=== PATIENT | male | born 1940 | race Caucasian/White ===

== ENCOUNTER 2021-04-12 09:57 | Outpatient (CLI) | payer MEDICARE | END 2021-04-12 09:58 | disposition home or self-care (01) | LOC: CT 09:57 | PROVIDERS: ATTEND Specialist | DX: N30.81 Other cystitis with hematuria (principal); I71.4 Abdominal aortic aneurysm, without rupture; K57.90 Diverticulosis of intestine, part unspecified, without perforation or abscess without bleeding; I72.3 Aneurysm of iliac artery; N50.89 Other specified disorders of the male genital organs | CPT/HCPCS: 74176 ==

== ENCOUNTER 2021-08-03 14:22 | Outpatient (CLI) | payer MEDICARE | END 2021-08-03 14:23 | disposition home or self-care (01) | LOC: BICULT 14:22 | PROVIDERS: ATTEND Specialist | DX: R31.9 Hematuria, unspecified (principal); N32.89 Other specified disorders of bladder | CPT/HCPCS: 76770 ==

== ENCOUNTER 2021-08-20 13:07 | Outpatient (CLI) | payer MEDICARE ==
[~2021-08-20 13:07] MED LIST: ISOVUE-370 76%-LOCM 1 ML ONE
== END 2021-08-20 13:08 | disposition home or self-care (01) ==
LOC: BICCT 13:07
PROVIDERS: ATTEND Thoracic Surgery (Cardiothoracic Vascular Surgery)
DX: I71.4 Abdominal aortic aneurysm, without rupture (principal); K57.90 Diverticulosis of intestine, part unspecified, without perforation or abscess without bleeding
CPT/HCPCS: 74174; 82565; Q9966

== ENCOUNTER 2021-08-31 12:45 | Outpatient (CLI) | payer MEDICARE ==
[2021-08-31 14:16] LABS: Mean Corpuscular HGB CONC 32.3 g/dL (32.0-36.0); Mean Corpuscular Hemoglobin 29.9 pg (27.0-33.0); Mean Corpuscular Volume 92.7 fl (81.2-95.1); Mean Platelet Volume 10.8 fl (7.4-10.4); Platelet Count 255 10x3/uL (150-450); RBC Distribution Width 13.8 % (11.5-14.5); Red Blood Cell (RBC) Count 4.68 10x6/uL (4.32-5.72)
[2021-08-31 14:35] LABS: Anion Gap 16 mmol/L (10-20); BUN (Urea Nitrogen) 12 mg/dL (8.4-25.7); Calc. Creatinine Clearance 0 mL/min (70-130); Calcium 9.5 mg/dL (7.8-10.44); Carbon Dioxide 26 mmol/L (23-31); Chloride 103 mmol/L (98-107); Estimated GFR 48; Glucose 102 mg/dL (83-110); Potassium 4.3 mmol/L (3.5-5.1); Sodium 141 mmol/L (136-145)
[2021-08-31 14:37] LABS: INR-International Normal Ratio 0.9; PTT 27.3 sec (22.0-33.0); Prothrombin Time 10.2 sec (9.5-12.1)
== END 2021-08-31 12:46 | disposition home or self-care (01) ==
LOC: LABBT 12:45
PROVIDERS: ATTEND Thoracic Surgery (Cardiothoracic Vascular Surgery)
DX: Z01.812 Encounter for preprocedural laboratory examination (principal); N32.89 Other specified disorders of bladder; R31.0 Gross hematuria; E11.9 Type 2 diabetes mellitus without complications; Z20.822 Contact with and (suspected) exposure to COVID-19; N40.1 Benign prostatic hyperplasia with lower urinary tract symptoms; R35.0 Frequency of micturition; N28.1 Cyst of kidney, acquired; I71.4 Abdominal aortic aneurysm, without rupture; Z79.01 Long term (current) use of anticoagulants; I48.91 Unspecified atrial fibrillation; R33.9 Retention of urine, unspecified
CPT/HCPCS: 80048; 85027; 85610; 85730; 87811

== ENCOUNTER 2021-08-31 16:15 | Inpatient (IN) | payer MEDICARE ==
[2021-09-05] MEDS ORDERED: EPINEPHrine 1 MG/ML AMP ONE (06:15)
[2021-09-05] MEDS ORDERED: Dexamethasone 4 mg/ml Vial ONE (06:15)
[2021-09-05] MEDS ORDERED: Protamine Sulfate 50 MG/5 ML VIAL ONE ×2 (06:15→10:04)
[2021-09-05] MEDS ORDERED: Bupivacaine PF 0.5% 30 ML VIAL ONE (06:15)
[2021-09-05] MEDS ORDERED: Heparin 10,000 UNITS/ 10 ML VIAL ONE ×2 (06:15→09:09)
[2021-09-05] MEDS ORDERED: Lidocaine 1% MPF 2 ML VIAL ONE (06:44)
[2021-09-05] MEDS ORDERED: fentaNYL Citrate/PF 100 MCG/2 ML SYRINGE ONE (07:05)
[2021-09-05] MEDS ORDERED: CEFAZOLIN 2 GM VIAL ONE (07:22)
[2021-09-05] MEDS ORDERED: Sodium Chloride 0.9% 100 ML ONE (07:22)
[2021-09-05] MEDS ORDERED: Fentanyl 100 MCG/2 ML VIAL SLOW IVP PRN (10:35)
[2021-09-05] MEDS ORDERED: Ondansetron PF 4 MG/2 ML Vial IVP PRN (10:35)
[2021-09-05] MEDS ORDERED: Phenylephrine 40 MG in Sodium Chloride 0.9% 250 ML 250 ML IVPB PRN (10:35)
[2021-09-05] MEDS ORDERED: hydrALAZINE 20 MG/ML VIAL SLOW IVP PRN ×3 (10:35→16:07)
[2021-09-05] MEDS ORDERED: ceFAZolin 2 GM/Dextrose 50 ML 2 GM in Premix Bag 1 BAG IVPB SCH (10:35)
[2021-09-05] MEDS ORDERED: Acetaminophen 325 MG TAB PO PRN (10:35)
[2021-09-05] MEDS ORDERED: traMADol HCl 50 MG TAB PO PRN ×2 (10:35)
[2021-09-05 13:05] VITALS: BMI 42.1
[2021-09-05] MEDS: CEFAZOLIN 2 GM in Sodium Chloride 0.9% 100 ML IVPB SCH ×2 (13:45→22:19)
[2021-09-05] MEDS: Tamsulosin HCl 0.4 MG CAP PO SCH (20:24)
[2021-09-05] MEDS: Carvedilol 25 MG TAB PO SCH (20:25)
[2021-09-05] MEDS: glipiZIDE 5 MG TAB PO SCH (20:25)
[2021-09-05] MEDS ORDERED: Non-Formulary Item 1 EACH (Simvastatin [Simvastatin] 80 MG Tablet) PO SCH (21:00)
[2021-09-05] MEDS ORDERED: Finasteride 5 MG TAB PO SCH (21:00)
[2021-09-05] MEDS ORDERED: Atorvastatin Calcium 40 MG TAB PO SCH (21:00)
[2021-09-05] MEDS ORDERED: glipiZIDE 5 MG TAB PO SCH (21:00)
[2021-09-05] MEDS: Sodium Chloride 0.9% 1,000 ML IV SCH (22:20)
[2021-09-06 03:53] LABS: #Lymphocytes 1.2 thou/uL (1.20-3.40); #Monocytes 1.1 thou/uL (0.11-0.59); #Neutrophils 12.5 thou/uL (1.40-6.50); %Basophils 0.1 % (0.0-1.0); %Eosinophils 0.1 % (0.0-10.0); %Monocytes 7.5 % (0.0-10.0); %Neutrophils 84.3 % (42.0-75.0); Hemoglobin 13.7 g/dL (14.0-18.0); Mean Corpuscular HGB CONC 33.7 g/dL (32.0-36.0); Mean Corpuscular Volume 94.9 fL (78.0-98.0); Mean Platelet Volume 7.9 fL (7.4-10.4); Platelet Count 183 thou/uL (130-400); RBC Distribution Width 13.4 % (11.5-14.5); Red Blood Cell (RBC) Count 4.29 mill/uL (4.70-6.10); White Blood Cell (WBC) Count 14.8 thou/uL (4.8-10.8)
[2021-09-06 03:59] LABS: Anion Gap 14 mmol/L (10-20); BUN (Urea Nitrogen) 13 mg/dL (8.4-25.7); Calc. Creatinine Clearance 103 mL/min (70-130); Calcium 8.8 mg/dL (7.8-10.44); Carbon Dioxide 22 mmol/L (23-31); Chloride 108 mmol/L (98-107); Estimated GFR 64; Glucose 127 mg/dL (83-110); Potassium 3.8 mmol/L (3.5-5.1); Sodium 140 mmol/L (136-145)
[2021-09-06 04:40] VITALS: TEMP 97.7
[2021-09-06] MEDS: CEFAZOLIN 2 GM in Sodium Chloride 0.9% 100 ML IVPB SCH (06:28)
[2021-09-06] MEDS: Sodium Chloride 0.9% 1,000 ML IV SCH (08:04)
[2021-09-06] MEDS: Carvedilol 25 MG TAB PO SCH (08:06)
[2021-09-06] MEDS: Tamsulosin HCl 0.4 MG CAP PO SCH (08:07)
[2021-09-06] MEDS: glipiZIDE 5 MG TAB PO SCH (08:07)
[2021-09-06 08:08] VITALS: BP 135/85
[2021-09-06] MEDS ORDERED: Non-Formulary Item 1 EACH (Multivitamin [Multi-Vitamin Daily] 1 TABLET Tablet) PO SCH (09:00)
[2021-09-06] MEDS ORDERED: BUPROPION HCL 200 MG PO SCH (09:00)
[2021-09-06] MEDS ORDERED: Amlodipine 5 MG TAB PO SCH (09:00)
[2021-09-06] MEDS ORDERED: Aspirin 81 mg Enteric Coated Tablet PO SCH (09:00)
[2021-09-06] MEDS ORDERED: Non-Formulary Item 1 EACH (Omeprazole [Omeprazole] 40 MG Capsule.Dr) PO SCH (09:00)
[2021-09-06] MEDS ORDERED: Alogliptin 25 MG TAB PO SCH (09:00)
[2021-09-06] MEDS ORDERED: Hydrochlorothiazide 25 MG TAB PO SCH (09:00)
[2021-09-06] MEDS ORDERED: Ferrous Sulfate 325 MG TAB PO SCH (09:00)
[2021-09-06] MEDS ORDERED: Digoxin 0.125 MG TAB PO SCH (09:00)
[2021-09-06] MEDS ORDERED: Multivit, Therapeutic 1 TAB PO SCH (09:00)
[2021-09-06] MEDS ORDERED: Bupropion 100 MG SR TAB PO SCH (09:00)
== END 2021-09-06 10:57 | disposition home or self-care (01) | DRG 269 ==
LOC: SURG A 09-05 05:49 → CCU 09-05 12:52
PROVIDERS: ADMIT Thoracic Surgery (Cardiothoracic Vascular Surgery); ATTEND Thoracic Surgery (Cardiothoracic Vascular Surgery)
PROC: 04V03DZ Restriction of Abdominal Aorta with Intraluminal Device, Percutaneous Approach (ICD-10-PCS; principal; 2021-09-05)
DX: I71.4 Abdominal aortic aneurysm, without rupture (principal); Z68.41 Body mass index [BMI] 40.0-44.9, adult; Z20.822 Contact with and (suspected) exposure to COVID-19; E78.2 Mixed hyperlipidemia; E66.01 Morbid (severe) obesity due to excess calories; N40.0 Benign prostatic hyperplasia without lower urinary tract symptoms; I48.0 Paroxysmal atrial fibrillation; D49.4 Neoplasm of unspecified behavior of bladder; E11.9 Type 2 diabetes mellitus without complications; Z79.82 Long term (current) use of aspirin; Z79.899 Other long term (current) drug therapy; Z79.02 Long term (current) use of antithrombotics/antiplatelets; Z79.84 Long term (current) use of oral hypoglycemic drugs; Z95.1 Presence of aortocoronary bypass graft
CPT/HCPCS: 36415; 36416; 76000; 80048; 85025; 86850; 86900; 86901; C1726; C1776; C1894; J0171; J0360; J0690; J1100; J1642; J1644; J2720; J3490; J7050; S0020

== ENCOUNTER 2021-09-19 05:59 | Day surgery (SDC) | payer MEDICARE ==
[2021-09-17 11:17] LABS: Hemoglobin 12.5 g/dL (13.5-17.5); Mean Corpuscular HGB CONC 32.5 g/dL (32.0-36.0); Mean Corpuscular Hemoglobin 29.6 pg (27.0-33.0); Platelet Count 356 10x3/uL (150-450); RBC Distribution Width 13.9 % (11.5-14.5); Red Blood Cell (RBC) Count 4.23 10x6/uL (4.32-5.72)
[2021-09-17 11:30] LABS: PTT 26.8 sec (22.0-33.0); Prothrombin Time 10.5 sec (9.5-12.1)
[2021-09-17 11:46] LABS: Anion Gap 15 mmol/L (10-20); BUN (Urea Nitrogen) 14 mg/dL (8.4-25.7); Calc. Creatinine Clearance 0 mL/min (70-130); Calcium 9.3 mg/dL (7.8-10.44); Carbon Dioxide 30 mmol/L (23-31); Chloride 98 mmol/L (98-107); Estimated GFR 46; Glucose 139 mg/dL (83-110); Potassium 4.6 mmol/L (3.5-5.1); Sodium 138 mmol/L (136-145)
[2021-09-17 12:43] LABS: Bilirubin Neg (Negative); Blood, Urine 25 (Negative); Clarity Clear (Clear); Glucose, Urine (Dipstick) >=1000 mg/dL (Negative); Ketone, Urine Negative (Negative); Leukocyte Negative (Negative); Nitrite Negative (Negative); Protein, Urine (Dipstick) 15 mg/dl (Neg-Trace); Urobilinogen Normal mg/dL (Less than 2)
[2021-09-17 13:28] LABS: Bacteria/HPF Rare-Few HPF (None Seen); Squamous Epithelial 0-3 HPF (0-3); WBC/HPF 0-3 HPF (0-3)
[2021-09-17 13:29] LABS: Mucous/LPF Rare LPF (<2+)
[2021-09-17 14:13] VITALS: BMI 39.9
[2021-09-19] MEDS ORDERED: mitoMYcin 40 MG in Sodium Chloride 0.9% 40 ML IV SCH (06:30)
[2021-09-19] MEDS ORDERED: Fentanyl 100 MCG/2 ML VIAL ONE (07:05)
[2021-09-19] MEDS ORDERED: SUGAMMADEX SODIUM 200 MG/2 ML VIAL ONE (07:18)
[2021-09-19] MEDS ORDERED: Levofloxacin 500 mg/D5W 100 ml Premix Bag ONE (07:36)
[2021-09-19] MEDS ORDERED: Oxybutynin 5 MG TAB ONE (08:50)
[2021-09-19] MEDS ORDERED: Phenazopyridine HCl 100 MG TAB ONE (08:50)
[2021-09-19] MEDS ORDERED: Ondansetron PF 4 MG/2 ML Vial ONE (09:17)
[2021-09-19] MEDS ORDERED: Rocuronium Bromide 10 MG/ML (10ML VIAL) ONE (09:17)
[2021-09-19] MEDS ORDERED: Lidocaine 1% PF 5 ML VIAL ONE (09:17)
== END 2021-09-19 12:42 | disposition home or self-care (01) ==
LOC: SDC 05:59
PROVIDERS: ATTEND Urology
PROC: 0TBB8ZX Excision of Bladder, Via Natural or Artificial Opening Endoscopic, Diagnostic (ICD-10-PCS; principal; 2021-09-19)
PROC: 3E0K705 Introduction of Other Antineoplastic into Genitourinary Tract, Via Natural or Artificial Opening (ICD-10-PCS; 2021-09-19)
DX: C67.2 Malignant neoplasm of lateral wall of bladder (principal); N40.1 Benign prostatic hyperplasia with lower urinary tract symptoms; R39.14 Feeling of incomplete bladder emptying; N32.89 Other specified disorders of bladder; N32.3 Diverticulum of bladder; R35.0 Frequency of micturition; I11.9 Hypertensive heart disease without heart failure; E11.9 Type 2 diabetes mellitus without complications; I25.10 Atherosclerotic heart disease of native coronary artery without angina pectoris; I48.91 Unspecified atrial fibrillation; E78.00 Pure hypercholesterolemia, unspecified; I71.4 Abdominal aortic aneurysm, without rupture; E66.01 Morbid (severe) obesity due to excess calories; Z68.39 Body mass index [BMI] 39.0-39.9, adult; Z79.82 Long term (current) use of aspirin; Z79.84 Long term (current) use of oral hypoglycemic drugs; Z79.899 Other long term (current) drug therapy; Z95.1 Presence of aortocoronary bypass graft; Z95.810 Presence of automatic (implantable) cardiac defibrillator; Z20.822 Contact with and (suspected) exposure to COVID-19
CPT/HCPCS: 52235; 80048; 81001; 85027; 85610; 85730; 86850; 86900; 86901; 87086; 87811; J9280; 88305; 88307; 88341; 88342; J1956; J2405; J3010

== ENCOUNTER 2021-10-12 12:32 | Outpatient (CLI) | payer MEDICARE | END 2021-10-12 12:33 | disposition home or self-care (01) | LOC: LABBT 12:32 | PROVIDERS: ATTEND Urology | DX: Z01.818 Encounter for other preprocedural examination (principal); C67.9 Malignant neoplasm of bladder, unspecified; Z20.822 Contact with and (suspected) exposure to COVID-19 | CPT/HCPCS: 80048; 81001; 85027; 85610; 85730; 86850; 86900; 86901; 87086; 87811; 93005; 93010 ==

== ENCOUNTER 2021-10-17 07:36 | Day surgery (SDC) | payer MEDICARE ==
[2021-10-12 13:36] LABS: Bilirubin Neg (Negative); Blood, Urine Negative (Negative); Clarity Clear (Clear); Glucose, Urine (Dipstick) >=1000 mg/dL (Negative); Ketone, Urine Negative (Negative); Leukocyte 25 (Negative); Nitrite Negative (Negative); Protein, Urine (Dipstick) Negative (Neg-Trace); Specific Gravity, Urine 1.005 (1.002-1.036); Urobilinogen Normal mg/dL (Less than 2)
[2021-10-12 13:41] LABS: Hemoglobin 13.1 g/dL (13.5-17.5); Mean Corpuscular HGB CONC 31.9 g/dL (32.0-36.0); Mean Corpuscular Volume 91.1 fl (81.2-95.1); Mean Platelet Volume 10.6 fl (7.4-10.4); Platelet Count 250 10x3/uL (150-450); RBC Distribution Width 15.2 % (11.5-14.5); Red Blood Cell (RBC) Count 4.51 10x6/uL (4.32-5.72); White Blood Cell (WBC) Count 9.5 10x3/uL (3.5-10.5)
[2021-10-12 13:48] LABS: INR-International Normal Ratio 0.9; PTT 27.2 sec (22.0-33.0); Prothrombin Time 9.9 sec (9.5-12.1)
[2021-10-12 13:53] LABS: Anion Gap 14 mmol/L (10-20); BUN (Urea Nitrogen) 14 mg/dL (8.4-25.7); Calc. Creatinine Clearance 0 mL/min (70-130); Calcium 9.3 mg/dL (7.8-10.44); Carbon Dioxide 26 mmol/L (23-31); Chloride 105 mmol/L (98-107); Estimated GFR 51; Glucose 137 mg/dL (83-110); Potassium 4.4 mmol/L (3.5-5.1); Sodium 141 mmol/L (136-145)
[2021-10-12 13:57] LABS: Bacteria/HPF Rare-Few HPF (None Seen); RBC/HPF 0-3 HPF (0-3)
[2021-10-16 14:19] VITALS: BMI 40.4
[2021-10-17] MEDS ORDERED: mitoMYcin 40 MG in Sodium Chloride 0.9% 40 ML IV SCH (08:30)
[2021-10-17] MEDS ORDERED: mitoMYcin 40 MG in Sodium Chloride 0.9% 40 ML I-VESIC SCH (08:30)
[2021-10-17] MEDS ORDERED: Iopamidol 0 ML ONE (11:11)
[2021-10-17] MEDS ORDERED: Midazolam HCl 2 mg/2 ml Vial ONE (11:16)
[2021-10-17] MEDS ORDERED: Ketamine 50 MG/ML (10ML VIAL) ONE (11:16)
[2021-10-17] MEDS ORDERED: Famotidine/PF 20 mg/2ml Vial ONE (11:17)
[2021-10-17] MEDS ORDERED: Phenylephrine 10 MG/ML VIAL ONE (11:17)
[2021-10-17] MEDS ORDERED: SUGAMMADEX SODIUM 200 MG/2 ML VIAL ONE (11:21)
[2021-10-17] MEDS ORDERED: Levofloxacin 500 mg/D5W 100 ml Premix Bag ONE (11:26)
[2021-10-17] MEDS ORDERED: Ondansetron PF 4 MG/2 ML Vial ONE (11:36)
[2021-10-17] MEDS ORDERED: Neostigmine Methylsulfate 3 MG/3 ML SYRINGE ONE (11:36)
[2021-10-17] MEDS ORDERED: Glycopyrrolate 0.2 MG/ML 5 ML SYRINGE ONE ×2 (11:36)
[2021-10-17] MEDS ORDERED: Rocuronium Bromide 10 MG/ML (10ML VIAL) ONE (11:36)
[2021-10-17] MEDS ORDERED: Metoclopramide HCl 10 MG/2 ML VIAL ONE (11:36)
[2021-10-17] MEDS ORDERED: Oxybutynin 5 MG TAB ONE (12:53)
[2021-10-17] MEDS ORDERED: Phenazopyridine HCl 100 MG TAB ONE ×2 (12:53)
== END 2021-10-17 15:48 | disposition home or self-care (01) ==
LOC: SDC 07:36
PROVIDERS: ATTEND Urology
PROC: 0TBB8ZX Excision of Bladder, Via Natural or Artificial Opening Endoscopic, Diagnostic (ICD-10-PCS; principal; 2021-10-17)
PROC: 3E0K705 Introduction of Other Antineoplastic into Genitourinary Tract, Via Natural or Artificial Opening (ICD-10-PCS; 2021-10-17)
DX: C67.9 Malignant neoplasm of bladder, unspecified (principal); N32.3 Diverticulum of bladder; E11.9 Type 2 diabetes mellitus without complications; I25.10 Atherosclerotic heart disease of native coronary artery without angina pectoris; I48.91 Unspecified atrial fibrillation; E78.00 Pure hypercholesterolemia, unspecified; I11.9 Hypertensive heart disease without heart failure; N40.1 Benign prostatic hyperplasia with lower urinary tract symptoms; R35.0 Frequency of micturition; R33.8 Other retention of urine; I71.4 Abdominal aortic aneurysm, without rupture; E66.01 Morbid (severe) obesity due to excess calories; Z68.41 Body mass index [BMI] 40.0-44.9, adult; Z79.01 Long term (current) use of anticoagulants; Z79.82 Long term (current) use of aspirin; Z79.84 Long term (current) use of oral hypoglycemic drugs; Z79.899 Other long term (current) drug therapy; Z95.1 Presence of aortocoronary bypass graft; Z95.810 Presence of automatic (implantable) cardiac defibrillator; Z20.822 Contact with and (suspected) exposure to COVID-19
CPT/HCPCS: 51720; 52235; 80048; 81001; 85027; 85610; 85730; 86850; 86900; 86901; 87086; 87811; J9280; 88307; J1956; J2250; J2370; J2405; J2765; Q9967; S0028

== ENCOUNTER 2021-11-02 10:03 | Outpatient (CLI) | payer MEDICARE | END 2021-11-02 10:04 | disposition home or self-care (01) | LOC: NM 10:03 | PROVIDERS: ATTEND Urology | DX: Z12.2 Encounter for screening for malignant neoplasm of respiratory organs (principal); C67.9 Malignant neoplasm of bladder, unspecified | CPT/HCPCS: 71271; 78306; A9503 ==

== ENCOUNTER 2021-12-31 11:23 | Outpatient (CLI) | payer MEDICARE ==
[2021-12-31] MEDS ORDERED: Iopamidol 370 76% 100 ML VIAL ONE (14:24)
== END 2021-12-31 11:24 | disposition home or self-care (01) ==
LOC: CT 11:23
PROVIDERS: ATTEND Thoracic Surgery (Cardiothoracic Vascular Surgery)
DX: I71.40 Abdominal aortic aneurysm, without rupture, unspecified (principal); I74.4 Embolism and thrombosis of arteries of extremities, unspecified; E27.8 Other specified disorders of adrenal gland
CPT/HCPCS: 74174; 82565; Q9967

== ENCOUNTER 2022-05-02 12:34 | Outpatient (CLI) | payer MEDICARE ==
[~2022-05-02 12:34] MED LIST changes: -ISOVUE-370 76%-LOCM 1 ML ONE; +Iopamidol-370 76% 500 ML 1 ML ONE
== END 2022-05-02 12:35 | disposition home or self-care (01) ==
LOC: BICCT 12:34
PROVIDERS: ATTEND Urology
DX: C67.9 Malignant neoplasm of bladder, unspecified (principal); E27.8 Other specified disorders of adrenal gland; I72.3 Aneurysm of iliac artery; K57.30 Diverticulosis of large intestine without perforation or abscess without bleeding; N28.1 Cyst of kidney, acquired; K43.9 Ventral hernia without obstruction or gangrene; N32.3 Diverticulum of bladder; M47.9 Spondylosis, unspecified; Z95.828 Presence of other vascular implants and grafts; Z90.49 Acquired absence of other specified parts of digestive tract; Z96.642 Presence of left artificial hip joint
CPT/HCPCS: 74178

== ENCOUNTER → 2023-03-19 | Day surgery (SDC) | payer MEDICARE ==
[2023-03-17 12:19] VITALS: BMI 39.6
[2023-03-17 12:57] LABS: Hemoglobin 15.6 g/dL (13.5-17.5); Mean Corpuscular HGB CONC 32.5 g/dL (32.0-36.0); Mean Corpuscular Hemoglobin 29.4 pg (27.0-33.0); Mean Corpuscular Volume 90.6 fl (81.2-95.1); Mean Platelet Volume 10.6 fl (7.4-10.4); Platelet Count 220 10x3/uL (150-450); RBC Distribution Width 15.4 % (11.5-14.5); White Blood Cell (WBC) Count 9.4 10x3/uL (3.5-10.5)
[2023-03-17 13:05] LABS: Anion Gap 17 mmol/L (10-20); BUN (Urea Nitrogen) 21 mg/dL (8.4-25.7); Calc. Creatinine Clearance 75 mL/min (70-130); Calcium 9.4 mg/dL (7.8-10.44); Carbon Dioxide 25 mmol/L (23-31); Chloride 101 mmol/L (98-107); Estimated GFR 48; Glucose 276 mg/dL (83-110); Potassium 4.5 mmol/L (3.5-5.1); Sodium 138 mmol/L (136-145)
[2023-03-17 13:24] LABS: PTT 28.7 sec (22.0-33.0); Prothrombin Time 10.3 sec (9.5-12.1)
[~2023-03-19] MED LIST changes: -Iopamidol-370 76% 500 ML 1 ML ONE; +Lidocaine 1% PF 5 ML VIAL ONE; +PROPOFOL 20 ML ONE
== END ==
LOC: SDC 11:57
PROVIDERS: ATTEND Internal Medicine Cardiovascular Disease
PROC: 5A2204Z Restoration of Cardiac Rhythm, Single (ICD-10-PCS; principal; 2023-03-19)
DX: I48.19 Other persistent atrial fibrillation (principal); I11.0 Hypertensive heart disease with heart failure; I50.9 Heart failure, unspecified; I47.20 Ventricular tachycardia, unspecified; E78.5 Hyperlipidemia, unspecified; I34.0 Nonrheumatic mitral (valve) insufficiency; E66.01 Morbid (severe) obesity due to excess calories; E11.9 Type 2 diabetes mellitus without complications; I44.7 Left bundle-branch block, unspecified; I25.10 Atherosclerotic heart disease of native coronary artery without angina pectoris; Z95.810 Presence of automatic (implantable) cardiac defibrillator; Z68.39 Body mass index [BMI] 39.0-39.9, adult; Z79.899 Other long term (current) drug therapy; Z79.82 Long term (current) use of aspirin; Z79.84 Long term (current) use of oral hypoglycemic drugs
CPT/HCPCS: 80048; 85027; 85610; 85730; 92960; 93005; 93010; J2704

== ENCOUNTER 2023-05-12 11:43 | Outpatient (CLI) | payer MEDICARE ==
[2023-05-12 16:22] LABS: Hematocrit 47.5 % (38.8-50.0); Hemoglobin 15.6 g/dL (13.5-17.5); Mean Corpuscular HGB CONC 32.8 g/dL (32.0-36.0); Mean Corpuscular Hemoglobin 30.1 pg (27.0-33.0); Mean Corpuscular Volume 91.7 fl (81.2-95.1); Mean Platelet Volume 11.5 fl (7.4-10.4); Platelet Count 209 10x3/uL (150-450); RBC Distribution Width 15.4 % (11.5-14.5); Red Blood Cell (RBC) Count 5.18 10x6/uL (4.32-5.72)
[2023-05-12 16:26] LABS: Anion Gap 15 mmol/L (10-20); BUN (Urea Nitrogen) 23 mg/dL (8.4-25.7); Calc. Creatinine Clearance 0 mL/min (70-130); Calcium 9.2 mg/dL (7.8-10.44); Carbon Dioxide 26 mmol/L (23-31); Chloride 102 mmol/L (98-107); Estimated GFR 47; Glucose 265 mg/dL (83-110); Potassium 4.4 mmol/L (3.5-5.1); Sodium 139 mmol/L (136-145)
== END 2023-05-12 11:44 | disposition home or self-care (01) ==
LOC: LABBT 11:43
PROVIDERS: ATTEND Thoracic Surgery (Cardiothoracic Vascular Surgery)
DX: Z01.812 Encounter for preprocedural laboratory examination (principal); I72.4 Aneurysm of artery of lower extremity
CPT/HCPCS: 80048; 85027

== ENCOUNTER 2023-05-12 12:30 | Inpatient (IN) | payer MEDICARE ==
[2023-05-12 14:35] VITALS: BMI 39.9
[2023-05-13] MEDS ORDERED: Bupivacaine PF 0.5% 30 ML VIAL ONE (06:55)
[2023-05-13] MEDS ORDERED: EPINEPHrine 1 MG/ML VIAL ONE (06:55)
[2023-05-13] MEDS ORDERED: Lidocaine 1% MPF 2 ML VIAL ONE (07:06)
[2023-05-13] MEDS ORDERED: Midazolam HCl 2 mg/2 ml Vial ONE (07:06)
[2023-05-13] MEDS ORDERED: fentaNYL PF 100 MCG/2 ML SYRINGE ONE (07:28)
[2023-05-13] MEDS ORDERED: PROPOFOL 20 ML ONE (07:28)
[2023-05-13] MEDS ORDERED: Rocuronium Bromide 10 MG/ML (10ML VIAL) ONE (07:29)
[2023-05-13] MEDS ORDERED: Phenylephrine 10 MG/ML VIAL ONE (07:41)
[2023-05-13] MEDS ORDERED: CEFAZOLIN 1 GM VIAL ONE (07:46)
[2023-05-13] MEDS ORDERED: Heparin 5,000 UNITS/ML VIAL ONE (07:50)
[2023-05-13] MEDS ORDERED: Ondansetron HCl/PF 4 MG/2 ML Vial IVP PRN (08:36)
[2023-05-13] MEDS ORDERED: Promethazine HCl 25 MG/ML VIAL IM PRN ×3 (08:36→09:49)
[2023-05-13] MEDS ORDERED: SUGAMMADEX SODIUM 200 MG/2 ML VIAL ONE (09:27)
[2023-05-13] MEDS ORDERED: Ondansetron PF 4 MG/2 ML Vial ONE (09:28)
[2023-05-13] MEDS ORDERED: fentaNYL 50 mcg/mL 1 mL Vial SLOW IVP PRN ×2 (09:49)
[2023-05-13] MEDS ORDERED: Ipratropium/Albuterol 3 ML NEB NEB PRN (09:49)
[2023-05-13] MEDS ORDERED: Ondansetron PF 4 MG/2 ML Vial IVP PRN (09:49)
[2023-05-13] MEDS ORDERED: Acetaminophen 325 MG TAB PO PRN (09:49)
[2023-05-13] MEDS ORDERED: fentaNYL 50 mcg/mL 1 mL Vial ONE (10:09)
[2023-05-13] MEDS: D5 1/2 NS w/20 mEq KCL 1,000 ML IV SCH (13:52)
[2023-05-13] MEDS: CEFAZOLIN 2 GM in Sodium Chloride 0.9% 100 ML IVPB SCH (13:53)
[2023-05-13 14:49] LABS: #Monocytes 0.8 thou/uL (0.11-0.59); #Neutrophils 10.9 thou/uL (1.40-6.50); %Basophils 0.2 % (0.0-1.0); %Eosinophils 0.3 % (0.0-10.0); %Lymphocytes 9.4 % (21.0-51.0); %Monocytes 5.9 % (0.0-10.0); %Neutrophils 83.7 % (42.0-75.0); Hematocrit 42.9 % (42.0-52.0); Hemoglobin 13.4 g/dL (14.0-18.0); Mean Corpuscular HGB CONC 31.2 g/dL (32.0-36.0); Mean Corpuscular Hemoglobin 29.7 pg (27.0-31.0); Mean Corpuscular Volume 95.1 fl (78.0-98.0); Mean Platelet Volume 10.5 fL (7.4-10.4); Platelet Count 186 10x3/uL (130-400); RBC Distribution Width 15.7 % (11.5-14.5); Red Blood Cell (RBC) Count 4.51 mill/uL (4.70-6.10)
[2023-05-13] MEDS: Insulin Regular 300 UNITS/3 ML VIAL SC PRN (16:31)
[2023-05-13] MEDS: traMADol HCl 50 MG TAB PO PRN (16:39)
[2023-05-13] MEDS ORDERED: Non-Formulary Item 1 EACH (Simvastatin [Simvastatin] 80 MG Tablet) PO SCH (21:00)
[2023-05-13] MEDS ORDERED: Finasteride 5 MG TAB PO SCH ×2 (21:00)
[2023-05-13] MEDS ORDERED: glipiZIDE 5 MG TAB PO SCH (21:00)
[2023-05-13] MEDS ORDERED: Amlodipine 5 MG TAB PO SCH (21:00)
[2023-05-13] MEDS: glipiZIDE 5 MG TAB PO SCH (21:27)
[2023-05-13] MEDS: Atorvastatin Calcium 40 MG TAB PO SCH (21:27)
[2023-05-13] MEDS: Amlodipine 5 MG TAB PO SCH (21:27)
[2023-05-13] MEDS: Tamsulosin HCl 0.4 MG CAP PO SCH (21:28)
[2023-05-13] MEDS: Finasteride 5 MG TAB PO SCH (21:28)
[2023-05-14] MEDS: traMADol HCl 50 MG TAB PO PRN (00:36)
[2023-05-14 05:25] LABS: #Eosinphils 0.1 thou/uL (0.0-0.7); #Monocytes 1.6 thou/uL (0.11-0.59); #Neutrophils 10.7 thou/uL (1.40-6.50); %Basophils 0.3 % (0.0-1.0); %Eosinophils 0.7 % (0.0-10.0); %Lymphocytes 10.1 % (21.0-51.0); %Monocytes 11.4 % (0.0-10.0); %Neutrophils 77.1 % (42.0-75.0); Hematocrit 39.1 % (42.0-52.0); Hemoglobin 12.4 g/dL (14.0-18.0); Mean Corpuscular HGB CONC 31.7 g/dL (32.0-36.0); Mean Corpuscular Hemoglobin 29.5 pg (27.0-31.0); Mean Corpuscular Volume 92.9 fl (78.0-98.0); Mean Platelet Volume 11.1 fL (7.4-10.4); Platelet Count 181 10x3/uL (130-400); RBC Distribution Width 15.9 % (11.5-14.5); Red Blood Cell (RBC) Count 4.21 mill/uL (4.70-6.10); White Blood Cell (WBC) Count 13.8 10x3/uL (4.8-10.8)
[2023-05-14 05:42] LABS: Anion Gap 12 mmol/L (10-20); BUN (Urea Nitrogen) 18 mg/dL (8.4-25.7); Calc. Creatinine Clearance 92 mL/min (70-130); Calcium 8.2 mg/dL (7.8-10.44); Carbon Dioxide 26 mmol/L (23-31); Chloride 103 mmol/L (98-107); Estimated GFR 61; Glucose 172 mg/dL (83-110); Sodium 137 mmol/L (136-145)
[2023-05-14] MEDS: Digoxin 0.125 MG TAB PO SCH (08:41)
[2023-05-14] MEDS: Aspirin 81 mg Enteric Coated Tablet PO SCH (08:43)
[2023-05-14] MEDS: Hydrochlorothiazide 25 MG TAB PO SCH (08:43)
[2023-05-14] MEDS: Empagliflozin 25 MG TAB PO SCH (08:44)
[2023-05-14] MEDS: Apixaban 5 MG TAB PO SCH (08:44)
[2023-05-14] MEDS: Ferrous Sulfate 325 MG TAB PO SCH (08:44)
[2023-05-14] MEDS: Pioglitazone HCl 45 MG TAB PO SCH (08:45)
[2023-05-14] MEDS: Multivit, Therapeutic 1 TAB PO SCH (08:45)
[2023-05-14] MEDS: BuPROPion XL 150 MG ER.TAB PO SCH (08:45)
[2023-05-14] MEDS ORDERED: Non-Formulary Item 1 EACH (Omeprazole [Omeprazole] 40 MG Capsule.Dr) PO SCH (09:00)
[2023-05-14] MEDS ORDERED: Non-Formulary Item 1 EACH (Multivitamin [Multi-Vitamin Daily] 1 TABLET Tablet) PO SCH (09:00)
[2023-05-14] MEDS ORDERED: Ferrous Sulfate 325 MG TAB PO SCH (09:00)
[2023-05-14] MEDS ORDERED: Non-Formulary Item 1 EACH (Bupropion Hcl [Bupropion Xl] 300 MG Tab.Er.24h) PO SCH (09:00)
[2023-05-14] MEDS ORDERED: Pioglitazone HCl 45 MG TAB PO SCH (09:00)
[2023-05-14] MEDS ORDERED: HYDROcodone/Acetaminophen 7.5/325 mg Tablet PO PRN (11:20)
[2023-05-14] MEDS: HYDROcodone/Acetaminophen 7.5/325 mg Tablet PO PRN (11:59)
[2023-05-14] MEDS: Lorazepam 1 MG TAB PO PRN (20:28)
[2023-05-15] MEDS: hydrALAZINE 20 MG/ML VIAL SLOW IVP PRN (11:14)
[2023-05-17 09:21] VITALS: BP 131/70; TEMP 97.6
== END 2023-05-17 10:31 | disposition home or self-care (01) | DRG 272 ==
LOC: SURG A 05-13 06:09 → 2NO 05-13 13:20
PROVIDERS: ADMIT Thoracic Surgery (Cardiothoracic Vascular Surgery); ATTEND Thoracic Surgery (Cardiothoracic Vascular Surgery)
PROC: 041H0JH Bypass Right External Iliac Artery to Right Femoral Artery with Synthetic Substitute, Open Approach (ICD-10-PCS; principal; 2023-05-13)
PROC: 3E033XZ Introduction of Vasopressor into Peripheral Vein, Percutaneous Approach (ICD-10-PCS; 2023-05-13)
DX: I72.4 Aneurysm of artery of lower extremity (principal); E11.9 Type 2 diabetes mellitus without complications; I10 Essential (primary) hypertension; E78.00 Pure hypercholesterolemia, unspecified; N40.0 Benign prostatic hyperplasia without lower urinary tract symptoms; Z90.89 Acquired absence of other organs; Z79.899 Other long term (current) drug therapy; Z79.02 Long term (current) use of antithrombotics/antiplatelets; Z98.890 Other specified postprocedural states
CPT/HCPCS: 36415; 36416; 80048; 85025; J0171; J0360; J0665; J0690; J1642; J1644; J1815; J2250; J2371; J2405; J2704; J3010; J3480; J3490

== ENCOUNTER 2023-07-20 09:51 | Inpatient (IN) | payer MEDICARE ==
[2023-07-20] MEDS ORDERED: Amiodarone 150 MG/3 ML VIAL ONE (11:02)
[2023-07-20 11:09] LABS: #Basophils 0.04 10x3/uL (0.0-0.2); %Basophils 0.4 % (0.0-1.0); %Eosinophils 0.6 % (0.0-10.0); %Lymphocytes 18.3 % (21.0-51.0); %Monocytes 9.4 % (0.0-10.0); %Neutrophils 70.5 % (42.0-75.0); Hematocrit 49.5 % (42.0-52.0); Hemoglobin 15.9 g/dL (14.0-18.0); Mean Corpuscular HGB CONC 32.1 g/dL (32.0-36.0); Mean Corpuscular Hemoglobin 30.1 pg (27.0-31.0); Mean Corpuscular Volume 93.6 fL (78.0-98.0); Mean Platelet Volume 10.8 fL (7.4-10.4); Platelet Count 219 10x3/uL (130-400); RBC Distribution Width 15.4 % (11.5-14.5); Red Blood Cell (RBC) Count 5.29 mill/uL (4.70-6.10)
[2023-07-20 11:28] LABS: ALT (SGPT) 15 U/L (8-55); AST (SGOT) 12 U/L (5-34); Albumin 3.6 g/dL (3.4-4.8); Alkaline Phosphatase 52 U/L (40-110); Anion Gap 16 mmol/L (10-20); BUN (Urea Nitrogen) 22 mg/dL (8.4-25.7); Bilirubin, Total 0.5 mg/dL (0.2-1.2); Calc. Creatinine Clearance 0 mL/min (70-130); Calcium 9.4 mg/dL (7.8-10.44); Carbon Dioxide 27 mmol/L (23-31); Chloride 101 mmol/L (98-107); Estimated GFR 48; Glucose 331 mg/dL (83-110); Magnesium 2.2 mg/dL (1.6-2.6); Potassium 3.6 mmol/L (3.5-5.1); Protein, Total 6.6 g/dL (5.8-8.1); Sodium 140 mmol/L (136-145)
[2023-07-20 11:55] LABS: Troponin I 0.028 ng/mL (< 0.028)
[2023-07-20] MEDS ORDERED: Acetaminophen 325 MG TAB PO PRN (13:20)
[2023-07-20] MEDS ORDERED: Dextrose 50% Abboject 50 ML SYRINGE SLOW IVP PRN (13:20)
[2023-07-20] MEDS ORDERED: Dextrose 5% in Water 1,000 ML IV PRN (13:20)
[2023-07-20] MEDS ORDERED: Glucagon 1 MG/ML KIT IM PRN (13:20)
[2023-07-20 13:48] VITALS: BMI 39.0
[2023-07-20] MEDS: Amiodarone 150 MG, Admixture Fee 1 EACH in Dextrose 5% in Water 100 ML IVPB SCH (13:49)
[2023-07-20] MEDS: Amiodarone 450 MG, Admixture Fee 1 EACH in Dextrose 5% in Water 250 ML IVPB SCH (13:58)
[2023-07-20] MEDS ORDERED: Communication Order-Pharmacy FS PRN (16:09)
[2023-07-20] MEDS: glipiZIDE 5 MG TAB PO SCH (17:14)
[2023-07-20] MEDS: HumaLOG 300 UNITS/3 ML VIAL SC PRN ×2 (17:14→21:41)
[2023-07-20 17:53] LABS: Hematocrit 49.7 % (42.0-52.0); Hemoglobin 15.8 g/dL (14.0-18.0); Platelet Count 197 10x3/uL (130-400)
[2023-07-20 18:12] LABS: Troponin I 0.038 ng/mL (< 0.028)
[2023-07-20] MEDS: Finasteride 5 MG TAB PO SCH (21:41)
[2023-07-20] MEDS: Enoxaparin 30 MG (0.3 mL) SYRINGE SC SCH (21:41)
[2023-07-20] MEDS: Carvedilol 25 MG TAB PO SCH (21:41)
[2023-07-20] MEDS: Lorazepam 1 MG TAB PO PRN (21:41)
[2023-07-20] MEDS: Amlodipine 5 MG TAB PO SCH (21:41)
[2023-07-20] MEDS: Tamsulosin HCl 0.4 MG CAP PO SCH (21:41)
[2023-07-20] MEDS: Enoxaparin 100 MG (1 mL) SYRINGE SC SCH (21:41)
[2023-07-20 22:30] LABS: Troponin I 0.032 ng/mL (< 0.028)
[2023-07-21 05:10] LABS: #Basophils 0.04 10x3/uL (0.0-0.2); %Basophils 0.4 % (0.0-1.0); %Eosinophils 1.8 % (0.0-10.0); %Lymphocytes 19.9 % (21.0-51.0); %Monocytes 8.1 % (0.0-10.0); %Neutrophils 69.2 % (42.0-75.0); Hematocrit 47.7 % (42.0-52.0); Hemoglobin 15.4 g/dL (14.0-18.0); Mean Corpuscular HGB CONC 32.3 g/dL (32.0-36.0); Mean Corpuscular Hemoglobin 28.9 pg (27.0-31.0); Mean Corpuscular Volume 89.5 fL (78.0-98.0); Mean Platelet Volume 10.6 fL (7.4-10.4); Platelet Count 189 10x3/uL (130-400); RBC Distribution Width 15.8 % (11.5-14.5); Red Blood Cell (RBC) Count 5.33 mill/uL (4.70-6.10)
[2023-07-21 05:50] LABS: Anion Gap 15 mmol/L (10-20); BUN (Urea Nitrogen) 23 mg/dL (8.4-25.7); Calc. Creatinine Clearance 75 mL/min (70-130); Carbon Dioxide 26 mmol/L (23-31); Chloride 103 mmol/L (98-107); Estimated GFR 48; Glucose 140 mg/dL (83-110); Potassium 3.2 mmol/L (3.5-5.1); Sodium 141 mmol/L (136-145)
[2023-07-21] MEDS: BuPROPion XL 150 MG ER.TAB PO SCH (08:39)
[2023-07-21] MEDS: Potassium Chloride 20 MEQ TAB PO SCH (08:39)
[2023-07-21] MEDS: Pantoprazole DR 40 MG TAB PO SCH (08:39)
[2023-07-21] MEDS: Aspirin 81 mg Enteric Coated Tablet PO SCH (08:39)
[2023-07-21] MEDS: Multivitamin W/ Minerals 1 TAB PO SCH (10:06)
[2023-07-21] MEDS ORDERED: Communication Order-Pharmacy FS SCH (14:00)
[2023-07-21] MEDS: Sodium Chloride 0.9% 1,000 ML IV SCH (17:50)
[2023-07-21] MEDS: Amiodarone 200 MG TAB PO SCH (21:18)
[2023-07-22 05:43] LABS: Anion Gap 16 mmol/L (10-20); BUN (Urea Nitrogen) 22 mg/dL (8.4-25.7); Calc. Creatinine Clearance 79 mL/min (70-130); Calcium 8.9 mg/dL (7.8-10.44); Carbon Dioxide 23 mmol/L (23-31); Chloride 105 mmol/L (98-107); Estimated GFR 52; Glucose 152 mg/dL (83-110); Potassium 3.8 mmol/L (3.5-5.1); Sodium 140 mmol/L (136-145)
[2023-07-22] MEDS ORDERED: Communication Order-Pharmacy FS SCH (05:45)
[2023-07-22] MEDS ORDERED: Heparin 10,000 UNITS/ 10 ML VIAL ONE (10:08)
[2023-07-22] MEDS ORDERED: fentaNYL 50 mcg/mL 1 mL Vial ONE (10:16)
[2023-07-22] MEDS ORDERED: Midazolam HCl 2 mg/2 ml Vial ONE (10:17)
[2023-07-22] MEDS ORDERED: Iopamidol 370 76% 100 ML VIAL ONE (10:51)
[2023-07-22] MEDS ORDERED: Adenosine 6 mg (2 mL) VIAL ONE (11:21)
[2023-07-22] MEDS ORDERED: Adenosine 90 mg (30 mL) VIAL ONE (11:21)
[2023-07-22] MEDS ORDERED: Nitroglycerin 50 MG/250 ML BOT 250 ML ONE (11:34)
[2023-07-22] MEDS ORDERED: glipiZIDE 5 MG TAB PO SCH (16:30)
[2023-07-22] MEDS: Atorvastatin Calcium 40 MG TAB PO SCH (20:18)
[2023-07-23 04:39] LABS: Hematocrit 48.4 % (42.0-52.0); Hemoglobin 15.4 g/dL (14.0-18.0); Platelet Count 187 10x3/uL (130-400)
[2023-07-23] MEDS: Acetaminophen 500 MG TAB PO SCH (20:25)
[2023-07-24 04:41] LABS: #Basophils 0.03 10x3/uL (0.0-0.2); %Basophils 0.3 % (0.0-1.0); %Eosinophils 2.9 % (0.0-10.0); %Lymphocytes 15.5 % (21.0-51.0); %Monocytes 9.2 % (0.0-10.0); %Neutrophils 71.4 % (42.0-75.0); Hematocrit 46.8 % (42.0-52.0); Mean Corpuscular HGB CONC 32.1 g/dL (32.0-36.0); Mean Corpuscular Hemoglobin 29.4 pg (27.0-31.0); Mean Corpuscular Volume 91.8 fL (78.0-98.0); Mean Platelet Volume 10.6 fL (7.4-10.4); Platelet Count 182 10x3/uL (130-400); RBC Distribution Width 15.8 % (11.5-14.5)
[2023-07-24 05:24] LABS: Anion Gap 12 mmol/L (10-20); BUN (Urea Nitrogen) 20 mg/dL (8.4-25.7); Calc. Creatinine Clearance 87 mL/min (70-130); Calcium 8.9 mg/dL (7.8-10.44); Carbon Dioxide 20 mmol/L (23-31); Chloride 109 mmol/L (98-107); Estimated GFR 58; Glucose 121 mg/dL (83-110); Potassium 3.8 mmol/L (3.5-5.1); Sodium 137 mmol/L (136-145)
[2023-07-24] MEDS: Enoxaparin 100 MG (1 mL) SYRINGE SC SCH ×2 (10:04→20:21)
[2023-07-24] MEDS: Enoxaparin 30 MG (0.3 mL) SYRINGE SC SCH ×2 (10:05→20:21)
[2023-07-24] MEDS: Enoxaparin 120 MG/0.8 ML SYRINGE SC SCH (10:48)
[2023-07-24] MEDS ORDERED: Enoxaparin 120 MG/0.8 ML SYRINGE SC SCH (21:00)
[2023-07-24 23:21] VITALS: BP 134/72; TEMP 98.3
== END 2023-07-25 03:05 | disposition short-term general hospital (02) | DRG 287 ==
LOC: ERS 09:51 → 2NO 12:24
PROVIDERS: ADMIT Internal Medicine; ATTEND Hospitalist
PROC: 4A023N7 Measurement of Cardiac Sampling and Pressure, Left Heart, Percutaneous Approach (ICD-10-PCS; principal; 2023-07-22)
PROC: B211YZZ Fluoroscopy of Multiple Coronary Arteries using Other Contrast (ICD-10-PCS; 2023-07-22)
PROC: B213YZZ Fluoroscopy of Multiple Coronary Artery Bypass Grafts using Other Contrast (ICD-10-PCS; 2023-07-22)
DX: I47.20 Ventricular tachycardia, unspecified (principal); I13.0 Hypertensive heart and chronic kidney disease with heart failure and stage 1 through stage 4 chronic kidney disease, or unspecified chronic kidney disease; I50.22 Chronic systolic (congestive) heart failure; I48.21 Permanent atrial fibrillation; E11.22 Type 2 diabetes mellitus with diabetic chronic kidney disease; K21.9 Gastro-esophageal reflux disease without esophagitis; E11.51 Type 2 diabetes mellitus with diabetic peripheral angiopathy without gangrene; I25.5 Ischemic cardiomyopathy; E87.6 Hypokalemia; Z66 Do not resuscitate; I48.0 Paroxysmal atrial fibrillation; E66.9 Obesity, unspecified; I25.10 Atherosclerotic heart disease of native coronary artery without angina pectoris; N18.2 Chronic kidney disease, stage 2 (mild); Z96.641 Presence of right artificial hip joint; Z85.51 Personal history of malignant neoplasm of bladder; Z79.82 Long term (current) use of aspirin; Z79.899 Other long term (current) drug therapy; Z95.810 Presence of automatic (implantable) cardiac defibrillator
CPT/HCPCS: 36415; 36416; 71045; 80048; 80053; 83735; 84443; 84484; 85014; 85018; 85025; 85049; 85347; 93005; 93459; 93798; 93799; 94760; 96374; 99152; 99153; C1753; C1769; C1887; C1894; J0153; J0282; J1644; J1650; J1815; J2250; J3010; J7050; J7070; Q9967

== ENCOUNTER 2024-10-28 07:20 | Emergency (ER) | payer OTHER ==
[2024-10-28 07:50] LABS: #Basophils 0.05 10x3/uL (0.0-0.2); #Eosinophils 0.37 10x3/uL (0.0-0.7); #Monocytes 0.97 10x3/uL (0.11-0.59); #Neutrophils 6.58 10x3/uL (1.40-6.50); %Basophils 0.5 % (0.0-1.0); %Eosinophils 3.8 % (0.0-10.0); %Lymphocytes 17.0 % (21.0-51.0); %Monocytes 10.0 % (0.0-10.0); %Neutrophils 68.1 % (42.0-75.0); Hematocrit 47.2 % (42.0-52.0); Hemoglobin 15.4 g/dL (14.0-18.0); Mean Corpuscular Hemoglobin 29.5 pg (27.0-31.0); Mean Corpuscular Volume 90.4 fL (78.0-98.0); Platelet Count 180 10x3/uL (130-400); Red Blood Cell (RBC) Count 5.22 mill/uL (4.70-6.10); White Blood Cell (WBC) Count 9.67 10x3/uL (4.8-10.8)
[2024-10-28 09:08] LABS: ALT (SGPT) 18 U/L (Less than 45); AST (SGOT) 33 U/L (11-34); Albumin 3.6 g/dL (3.1-4.5); Alkaline Phosphatase 54 U/L (40-110); Anion Gap 14 mmol/L (10-20); BUN (Urea Nitrogen) 17 mg/dL (8.4-25.7); Bilirubin, Total 0.4 mg/dL (0.3-1.2); Calc. Creatinine Clearance 0 mL/min (70-130); Calcium 8.8 mg/dL (7.8-10.44); Carbon Dioxide 27 mmol/L (23-31); Chloride 103 mmol/L (98-107); Globulin 3.1 g/dL (2.4-3.5); Glucose 198 mg/dL (83-110); Potassium 4.0 mmol/L (3.5-5.1); Sodium 140 mmol/L (136-145)
[2024-10-28] MEDS ORDERED: Ondansetron PF 4 MG/2 ML Vial ONE (09:08)
[2024-10-28] MEDS ORDERED: Ketorolac Tromethamine 30 MG (1 mL) VIAL ONE (09:45)
== END 2024-10-28 12:08 | disposition home or self-care (01) ==
LOC: ERS 07:20
DX: S12.101A Unspecified nondisplaced fracture of second cervical vertebra, initial encounter for closed fracture (principal); I10 Essential (primary) hypertension; E11.9 Type 2 diabetes mellitus without complications; K21.9 Gastro-esophageal reflux disease without esophagitis; I48.91 Unspecified atrial fibrillation; Z79.899 Other long term (current) drug therapy; Z79.82 Long term (current) use of aspirin; Z79.01 Long term (current) use of anticoagulants; Z79.84 Long term (current) use of oral hypoglycemic drugs; W19.XXXA Unspecified fall, initial encounter
CPT/HCPCS: 70450; 71045; 72040; 72125; 80053; 85025; 93005; J1885; J2270; J2405; 96374; 96375

== ENCOUNTER 2024-11-11 13:03 | Outpatient (CLI) | payer OTHER | END 2024-11-11 13:04 | disposition home or self-care (01) | LOC: BICRAD 13:03 | PROVIDERS: ATTEND Physician Assistant Surgical | DX: M54.2 Cervicalgia (principal); M47.812 Spondylosis without myelopathy or radiculopathy, cervical region; S02.113A Unspecified occipital condyle fracture, initial encounter for closed fracture | CPT/HCPCS: 72040 ==

== ENCOUNTER 2024-12-23 16:58 | Emergency (ER) | payer OTHER ==
[2024-12-23 18:12] LABS: #Basophils 0.03 10x3/uL (0.0-0.2); #Eosinophils 0.20 10x3/uL (0.0-0.7); #Monocytes 1.40 10x3/uL (0.11-0.59); #Neutrophils 5.84 10x3/uL (1.40-6.50); %Basophils 0.3 % (0.0-1.0); %Eosinophils 2.1 % (0.0-10.0); %Lymphocytes 19.9 % (21.0-51.0); %Monocytes 15.0 % (0.0-10.0); %Neutrophils 62.4 % (42.0-75.0); Hematocrit 44.8 % (42.0-52.0); Hemoglobin 14.3 g/dL (14.0-18.0); Mean Corpuscular Hemoglobin 29.5 pg (27.0-31.0); Mean Corpuscular Volume 92.6 fL (78.0-98.0); Platelet Count 227 10x3/uL (130-400); Red Blood Cell (RBC) Count 4.84 mill/uL (4.70-6.10); White Blood Cell (WBC) Count 9.36 10x3/uL (4.8-10.8)
[2024-12-23 18:31] LABS: ALT (SGPT) 16 U/L (Less than 45); AST (SGOT) 23 U/L (11-34); Albumin 3.4 g/dL (3.1-4.5); Alkaline Phosphatase 55 U/L (40-110); Anion Gap 14 mmol/L (10-20); BUN (Urea Nitrogen) 22 mg/dL (8.4-25.7); Bilirubin, Total 0.4 mg/dL (0.3-1.2); Calc. Creatinine Clearance 0 mL/min (70-130); Calcium 9.0 mg/dL (7.8-10.44); Carbon Dioxide 25 mmol/L (23-31); Chloride 101 mmol/L (98-107); Globulin 3.2 g/dL (2.4-3.5); Glucose 167 mg/dL (83-110); Potassium 3.7 mmol/L (3.5-5.1); Sodium 136 mmol/L (136-145)
[2024-12-23] MEDS ORDERED: cefTRIAXone (ROCEPHIN) 1 GM VIAL ONE (21:05)
== END 2024-12-23 21:15 | disposition home or self-care (01) ==
LOC: ERS 16:58
DX: L03.115 Cellulitis of right lower limb (principal); I10 Essential (primary) hypertension; E11.9 Type 2 diabetes mellitus without complications; I48.91 Unspecified atrial fibrillation
CPT/HCPCS: 71045; 80053; 83605; 83880; 84484; 85025; 85379; 87040; 93005; 93971; J0696; 36415; 96374

== ENCOUNTER 2025-02-16 08:23 | Outpatient (CLI) | payer OTHER ==
[2025-02-16] MEDS ORDERED: Iopamidol 370 76% 100 ML VIAL ONE (09:52)
== END 2025-02-16 08:24 | disposition home or self-care (01) ==
LOC: CT 08:23
PROVIDERS: ATTEND Urology
DX: C67.9 Malignant neoplasm of bladder, unspecified (principal); N28.9 Disorder of kidney and ureter, unspecified; N32.3 Diverticulum of bladder; N40.1 Benign prostatic hyperplasia with lower urinary tract symptoms; R33.8 Other retention of urine; N28.1 Cyst of kidney, acquired; I71.40 Abdominal aortic aneurysm, without rupture, unspecified; D35.01 Benign neoplasm of right adrenal gland; K57.30 Diverticulosis of large intestine without perforation or abscess without bleeding; N32.89 Other specified disorders of bladder; Z96.642 Presence of left artificial hip joint; M47.819 Spondylosis without myelopathy or radiculopathy, site unspecified; Z90.49 Acquired absence of other specified parts of digestive tract; I70.0 Atherosclerosis of aorta; R91.1 Solitary pulmonary nodule
CPT/HCPCS: 74178; Q9967